=== PATIENT | male | born 1950 | race Caucasian/White ===

== ENCOUNTER 2018-12-02 10:32 | Emergency (ER) | payer BC, MEDICARE ==
[~2018-12-02 10:32] MED LIST: ATOR20TA PO; CLOP75TA35 PO; METAMUCIL425 GM PO
--- NOTE | 2018-12-02 10:47 | NUR ---
PT TELLS REGISTRATION THAT HE IS LEAVING AND GOING TO DR JACKSON'S OFFICE.
== END 2018-12-02 11:52 | disposition left against medical advice (07) ==
LOC: ER 10:32
DX: R30.0 Dysuria (principal); Z53.21 Procedure and treatment not carried out due to patient leaving prior to being seen by health care provider

== ENCOUNTER 2021-06-03 18:10 | Inpatient (IN) | payer MEDICARE, OTHER ==
[~2021-06-03] VITALS: Ht 180.3 cm; Wt 99.1 kg
[~2021-06-03 18:10] MED LIST changes: +ASPI-1265 PO; -ATOR20TA PO; -CLOP75TA35 PO; +LOP25T PO; -METAMUCIL425 GM PO; +NITR0.4T51 SL; +NORT25CA5 PO; +OMEG1CAP46 PO
[2021-06-03 18:54] LABS: EOSINOPHILS # (AUTO) 0.2 X10'3 (0-0.9); HEMATOCRIT 45.1 % (42.0-52.0); HEMOGLOBIN 15.5 g/dl (14.0-17.9); MEAN CORPUSCULAR HGB CONC 34.3 g/dL (33.0-36.5); MEAN PLATELET VOLUME 8.6 FL (7.4-10.4); MONOCYTES # (AUTO) 0.4 X10'3 (0-0.9); NEUTROPHILS # (AUTO) 2.7 X10'3 (1.8-7.7)
[2021-06-03 18:56] LABS: EOSINOPHILS % (AUTO) 3.7 % (0-6); LYMPHOCYTES # (AUTO) 1.2 X10'3 (1.1-4.8); LYMPHOCYTES % (AUTO) 25.6 % (21-51); MEAN CORPUSCULAR HEMOGLOBIN 30.6 PG (27.0-31.0); MEAN CORPUSCULAR VOLUME 89.2 FL (78-98); MONOCYTES % (AUTO) 8.5 % (2-12); NEUTROPHILS % (AUTO) 61.2 % (42-75); PLATELET COUNT 191 X10'3 (140-440); RED BLOOD COUNT 5.06 X10'6 (4.70-6.10); WHITE BLOOD COUNT 4.5 X10'3 (4.5-11.0)
[2021-06-03 19:03] LABS: ALANINE AMINOTRANSFERASE 36 U/L (12-78); ALBUMIN 3.8 G/DL (3.4-5.0); ALBUMIN/GLOBULIN RATIO 1.2 (1.1-1.5); ALKALINE PHOSPHATASE 56 IU/L (46-116); ANION GAP 7 (8-16); ASPARTATE AMINO TRANSFERASE 21 U/L (10-37); BILIRUBIN,TOTAL 0.5 MG/DL (0.1-1.0); BLOOD UREA NITROGEN 14 MG/DL (7-18); BUN/CREATININE RATIO 12.5 (5.4-32.0); CHLORIDE 105 MMOL/L (99-107); CREATININE 1.12 MG/DL (0.60-1.10); GLUCOSE 125 MG/DL (70-104); SODIUM 140 MMOL/L (135-145); TOTAL CARBON DIOXIDE 27.6 MMOL/L (24-32); eGFR 65 ML/MIN
[2021-06-03] MEDS ORDERED: AMIT10TA6 PO (20:28)
[2021-06-03] MEDS ORDERED: ATOR20TA66 PO (20:28)
[2021-06-03] MEDS ORDERED: HYDROcodone/acetaminophen 10/325mg tab PO PRN (20:30)
[2021-06-03] MEDS ORDERED: nitroGLYCERIN 0.4mg SUBLingual tab SL PRN (20:30)
[2021-06-03] MEDS ORDERED: regadenoson 0.4mg/5ml syringe IV PRN (20:30)
[2021-06-03] MEDS ORDERED: mag hydrox/Alum hydrox/simeth 30ml oral suspension PO PRN (20:30)
[2021-06-03] MEDS ORDERED: aminophylline 250mg/10ml inj. IV PRN (20:30)
[2021-06-03] MEDS ORDERED: potassium Cl 20 mEq SR tablet PO PRN ×2 (20:30)
[2021-06-03] MEDS ORDERED: metoprolol tartrate 1mg/ml inj IV PRN (20:30)
[2021-06-03] MEDS ORDERED: PERFLUTREN PROTEIN-A MICROSPHR (Optison) 0.22 MG/ML 3ML VIAL IV PRN (20:30)
[2021-06-03] MEDS ORDERED: normal saline 1000ml 1,000 ML IV SCH (20:30)
[2021-06-03] MEDS ORDERED: magnesium Cl slow-release 64mg tablet PO PRN (20:30)
[2021-06-03] MEDS ORDERED: acetaminophen 325mg tablet PO PRN ×2 (20:30)
[2021-06-03] MEDS ORDERED: ondansetron/PF 4mg/2ml inj IV PRN (20:30)
[2021-06-03] MEDS ORDERED: magnesium hydroxide 30ml (MOM) UD suspension PO PRN (20:30)
[2021-06-03] MEDS ORDERED: magnesium 4gm in 100ml NS 100 ML IV PRN (20:30)
[2021-06-03] MEDS ORDERED: magnesium 2GM in 50ml NS 50 ML IV PRN (20:30)
[2021-06-03] MEDS ORDERED: HYDROcodone/acetaminophen 5mg/325mg tablet PO PRN (20:30)
[2021-06-03] MEDS ORDERED: morphine 2 MG/ML inj. syringe IV PRN ×2 (20:30)
[2021-06-03] MEDS ORDERED: potassium CL 10mEq/100ml bag 100 ML IV PRN (20:30)
[2021-06-03 20:54] LABS: MAGNESIUM 2.3 MG/DL (1.5-2.4)
[2021-06-03] MEDS ORDERED: temazepam 15mg capsule PO PRN (21:00)
--- NOTE | 2021-06-03 22:37 | NUR ---
Patient transfer from ER into PCU room 3028M in a stable condition, vitals signs stable oriented to room no complaint of chest pain bed in lower position call light within reach will continue to monitor and report change
[2021-06-03 23:00] VITALS: BP 142/76
[2021-06-04] VITALS (9 sets, daily range): BP systolic 74–133; BP diastolic 68–82
[2021-06-04] MEDS: heparin, porcine 5000 units/ml vial SQ SCH ×2 (00:59→08:30)
--- NOTE | 2021-06-04 06:41 | NUR ---
Problems reprioritized. Patient report given, questions answered & plan of care reviewed with Kerline GODINEZ .
[2021-06-04 06:57] LABS: EOSINOPHILS # (AUTO) 0.2 X10'3 (0-0.9); HEMATOCRIT 44.7 % (42.0-52.0); HEMOGLOBIN 15.1 g/dl (14.0-17.9); LYMPHOCYTES % (AUTO) 27.7 % (21-51); MEAN CORPUSCULAR HEMOGLOBIN 30.6 PG (27.0-31.0); MEAN CORPUSCULAR HGB CONC 33.9 g/dL (33.0-36.5); MEAN CORPUSCULAR VOLUME 90.2 FL (78-98); MEAN PLATELET VOLUME 8.7 FL (7.4-10.4); MONOCYTES # (AUTO) 0.4 X10'3 (0-0.9); MONOCYTES % (AUTO) 11.7 % (2-12); NEUTROPHILS # (AUTO) 1.9 X10'3 (1.8-7.7); NEUTROPHILS % (AUTO) 53.6 % (42-75); PLATELET COUNT 165 X10'3 (140-440); RED BLOOD COUNT 4.96 X10'6 (4.70-6.10); RED CELL DISTRIBUTION WIDTH 13.2 % (11.5-14.5); WHITE BLOOD COUNT 3.6 X10'3 (4.5-11.0)
[2021-06-04] MEDS ORDERED: pantoprazole 40mg Tablet.DR PO SCH (07:30)
[2021-06-04 07:37] LABS: ALANINE AMINOTRANSFERASE 45 U/L (12-78); ALBUMIN 3.4 G/DL (3.4-5.0); ALBUMIN/GLOBULIN RATIO 1.1 (1.1-1.5); ALKALINE PHOSPHATASE 52 IU/L (46-116); ANION GAP 9 (8-16); ASPARTATE AMINO TRANSFERASE 28 U/L (10-37); BILIRUBIN,TOTAL 0.5 MG/DL (0.1-1.0); BLOOD UREA NITROGEN 16 MG/DL (7-18); CALCIUM 8.6 MG/DL (8.5-10.1); CHLORIDE 107 MMOL/L (99-107); CHOL/HDL RATIO 2.9 (0.00-4.99); CHOLESTEROL 133 MG/DL (0-200); CREATININE 0.94 MG/DL (0.60-1.10); GLUCOSE 102 MG/DL (70-104); HDL CHOLESTEROL 46 MG/DL (35-60); LDL CHOLESTEROL 67 MG/DL (50-100); POTASSIUM 4.1 MMOL/L (3.5-5.1); SODIUM 141 MMOL/L (135-145); TOTAL CARBON DIOXIDE 25.2 MMOL/L (24-32); TOTAL PROTEIN 6.4 G/DL (6.4-8.2); TRIGLYCERIDES 118 MG/DL (20-135); eGFR 79 ML/MIN
[2021-06-04] MEDS ORDERED: atorvastatin 20mg tablet PO SCH (08:00)
[2021-06-04] MEDS ORDERED: metoprolol tartrate 12.5mg (1/2 tablet) PO SCH (08:00)
[2021-06-04] MEDS ORDERED: aspirin 81mg tab.chew PO SCH (08:00)
[2021-06-04] MEDS ORDERED: K and/or MAG REPLACEMENT MC SCH (08:00)
[2021-06-04] MEDS ORDERED: amitriptyline 10mg tablet PO SCH (08:00)
[2021-06-04] MEDS ORDERED: METO-395 PO (12:00)
--- NOTE | 2021-06-04 12:35 | NUR ---
PAGER ID: [phone] MESSAGE: [phone] Tammy results are back, please advise when we can advance him from NPO. Pt has been asking. Seema ext [phone]
[2021-06-05] MEDS ORDERED: metoprolol succinate 25mg (24-HOUR) SR. Tablet PO SCH (08:00)
== END 2021-06-04 15:29 | disposition home or self-care (01) | DRG 556 ==
LOC: ER 18:12 → ED HOLD 20:31 → PCU 3S 22:25
PROVIDERS: ADMIT Internal Medicine; ATTEND Internal Medicine
PROC: 4A02XM4 Measurement of Cardiac Total Activity, External Approach (ICD-10-PCS; principal; 2021-06-04)
PROC: 3E073KZ Introduction of Other Diagnostic Substance into Coronary Artery, Percutaneous Approach (ICD-10-PCS; 2021-06-04)
DX: M79.602 Pain in left arm (principal); E78.00 Pure hypercholesterolemia, unspecified; E78.5 Hyperlipidemia, unspecified; K21.9 Gastro-esophageal reflux disease without esophagitis; R10.10 Upper abdominal pain, unspecified; N18.30 Chronic kidney disease, stage 3 unspecified; Z79.82 Long term (current) use of aspirin; Z79.899 Other long term (current) drug therapy; Z87.891 Personal history of nicotine dependence; I25.2 Old myocardial infarction; Z82.49 Family history of ischemic heart disease and other diseases of the circulatory system
CPT/HCPCS: 36415; 71045; 78452; 80053; 80061; 83735; 83880; 84484; 85025; 93005; 93017; 93306; 96360; 97116; 97161; 97530; 99285; A9500; G0378; J1644; J2785; J7030

== ENCOUNTER 2022-07-22 17:22 | Emergency (ER) | payer MEDICARE ==
[~2022-07-22] VITALS: Ht 180.3 cm; Wt 98.0 kg
[~2022-07-22 17:22] MED LIST changes: +AMIT10TA6 PO; +ATOR20TA66 PO; -LOP25T PO; +METO-395 PO; -NORT25CA5 PO
[2022-07-22 18:25] LABS: BASOPHILS % (AUTO) 0.7 % (0-1); EOSINOPHILS # (AUTO) 0.2 X10'3 (0-0.9); HEMATOCRIT 46.2 % (42.0-52.0); HEMOGLOBIN 15.4 g/dl (14.0-17.9); LYMPHOCYTES # (AUTO) 1.2 X10'3 (1.1-4.8); LYMPHOCYTES % (AUTO) 19.4 % (21-51); MEAN CORPUSCULAR HEMOGLOBIN 30.3 PG (27.0-31.0); MEAN CORPUSCULAR HGB CONC 33.4 g/dL (33.0-36.5); MEAN CORPUSCULAR VOLUME 90.9 FL (78-98); MEAN PLATELET VOLUME 8.4 FL (7.4-10.4); MONOCYTES # (AUTO) 0.5 X10'3 (0-0.9); MONOCYTES % (AUTO) 8.5 % (2-12); NEUTROPHILS # (AUTO) 4.1 X10'3 (1.8-7.7); NEUTROPHILS % (AUTO) 68.4 % (42-75); PLATELET COUNT 187 X10'3 (140-440); RED BLOOD COUNT 5.08 X10'6 (4.70-6.10); RED CELL DISTRIBUTION WIDTH 13.3 % (11.5-14.5)
[2022-07-22 18:38] LABS: ALANINE AMINOTRANSFERASE 27 U/L (12-78); ALBUMIN 4.1 G/DL (3.4-5.0); ALBUMIN/GLOBULIN RATIO 1.3 (1.1-1.5); ALKALINE PHOSPHATASE 60 IU/L (46-116); ANION GAP 8 (8-16); ASPARTATE AMINO TRANSFERASE 20 U/L (10-37); BILIRUBIN,TOTAL 0.6 MG/DL (0.1-1.0); BLOOD UREA NITROGEN 18 MG/DL (7-18); BUN/CREATININE RATIO 15.9 (5.4-32.0); CHLORIDE 104 MMOL/L (99-107); CREATININE 1.13 MG/DL (0.60-1.10); GLUCOSE 97 MG/DL (70-104); MAGNESIUM 2.2 MG/DL (1.5-2.4); POTASSIUM 3.8 MMOL/L (3.5-5.1); SODIUM 138 MMOL/L (135-145); TOTAL PROTEIN 7.2 G/DL (6.4-8.2); eGFR 64 ML/MIN
[2022-07-22] MEDS ORDERED: acetaminophen 325mg tablet PO ONE (21:45)
[2022-07-22] MEDS ORDERED: ondansetron 4mg rapidly disintigrating tab PO ONE (22:00)
[2022-07-22 22:33] VITALS: BP 148/84
== END 2022-07-22 22:34 | disposition home or self-care (01) ==
LOC: ER 17:22
DX: R07.89 Other chest pain (principal); R51.9 Headache, unspecified; R06.02 Shortness of breath; E78.00 Pure hypercholesterolemia, unspecified; I25.2 Old myocardial infarction; K21.9 Gastro-esophageal reflux disease without esophagitis; I25.10 Atherosclerotic heart disease of native coronary artery without angina pectoris; Z98.890 Other specified postprocedural states; Z72.89 Other problems related to lifestyle; Z79.899 Other long term (current) drug therapy; Z79.82 Long term (current) use of aspirin
CPT/HCPCS: 36415; 70450; 71045; 80053; 83735; 83880; 84484; 85025; 93005; 99285

== ENCOUNTER 2022-09-25 18:29 | Emergency (ER) | payer MEDICARE ==
[~2022-09-25] VITALS: Ht 180.3 cm; Wt 105.4 kg
[2022-09-25 19:43] LABS: CLARITY,URINE SLIGHTLY CLOUDY (Clear); COLOR,URINE YELLOW (Yellow); GLUCOSE, URINE NEGATIVE (Neg); KETONES,URINE NEGATIVE (Neg); LEUKOCYTE ESTERASE ,URINE NEGATIVE (Neg); NITRITES, URINE NEGATIVE (Neg); OCCULT BLOOD,URINE LARGE (Neg); PH,URINE 7.5 (4.8-8.0); PROTEIN,URINE NEGATIVE (Neg); UROBILINOGEN,URINE 0.2 E.U/dL (0.2-1.0)
[2022-09-25 19:50] LABS: UA COLLECTION TYPE CLN CATCH MIDSTREAM
[2022-09-25 20:04] LABS: RBC,URINE TNTC /HPF (0-2); SQUAMOUS EPITHELIAL CELL,UR FEW /LPF (FEW)
[2022-09-25 20:05] LABS: BACTERIA,URINE FEW /HPF (Neg); WBC,URINE 0-4 /HPF (0-4)
[2022-09-25 21:26] LABS: BASOPHILS % (AUTO) 0.9 % (0-1); EOSINOPHILS # (AUTO) 0.1 X10'3 (0-0.9); EOSINOPHILS % (AUTO) 1.7 % (0-6); HEMOGLOBIN 15.5 g/dl (14.0-17.9); LYMPHOCYTES # (AUTO) 1.2 X10'3 (1.1-4.8); LYMPHOCYTES % (AUTO) 24.1 % (21-51); MEAN CORPUSCULAR HGB CONC 33.7 g/dL (33.0-36.5); MEAN PLATELET VOLUME 8.5 FL (7.4-10.4); MONOCYTES # (AUTO) 0.6 X10'3 (0-0.9); MONOCYTES % (AUTO) 11.1 % (2-12); NEUTROPHILS # (AUTO) 3.1 X10'3 (1.8-7.7); NEUTROPHILS % (AUTO) 62.2 % (42-75); PLATELET COUNT 196 X10'3 (140-440); RED CELL DISTRIBUTION WIDTH 13.5 % (11.5-14.5)
[2022-09-25 21:33] LABS: ANION GAP 10 (8-16); BLOOD UREA NITROGEN 17 MG/DL (7-18); BUN/CREATININE RATIO 13.5 (10.0-20.0); CALCIUM 9.4 MG/DL (8.5-10.1); CHLORIDE 106 MMOL/L (99-107); CREATININE 1.26 MG/DL (0.60-1.10); GLUCOSE 98 MG/DL (70-104); SODIUM 142 MMOL/L (135-145); TOTAL CARBON DIOXIDE 26.2 MMOL/L (24-32); eGFR 56 ML/MIN
[2022-09-26] MEDS ORDERED: LidoCAINE 2% Topical Jelly 11mL syringe TOP ONE (01:15)
[2022-09-26 02:33] VITALS: BP 143/84
== END 2022-09-26 02:43 | disposition home or self-care (01) ==
LOC: ER 18:29
DX: R31.9 Hematuria, unspecified (principal); R33.9 Retention of urine, unspecified; E78.00 Pure hypercholesterolemia, unspecified; K21.9 Gastro-esophageal reflux disease without esophagitis
CPT/HCPCS: 36415; 51702; 80048; 81001; 85025; 99284; A5200

== ENCOUNTER 2022-10-06 19:30 | Emergency (ER) | payer MEDICARE ==
[~2022-10-06] VITALS: Ht 180.3 cm; Wt 99.6 kg
[2022-10-06 19:41] VITALS: BP 116/74
--- NOTE | 2022-10-06 20:01 | NUR ---
Pt in FT3 Pt c/o low urine output. Pt had a FC placed 2 weeks prior due to difficulty w/ uriation. Pt last emptied his FC around 17:30. At that time he emptied about 400ML of urine. Pt c/o urgency. Urine is blood tinged. Pt has a PMHX of prostate cancer, and prostate was removed 2011. Pt educated to POC. Pt in agreement. Pending MD orders, eval and treatment.
== END 2022-10-06 21:38 | disposition home or self-care (01) ==
LOC: ER 19:31
DX: T83.098A Other mechanical complication of other urinary catheter, initial encounter (principal); E78.00 Pure hypercholesterolemia, unspecified; K21.9 Gastro-esophageal reflux disease without esophagitis; Z87.891 Personal history of nicotine dependence
CPT/HCPCS: 99284

== ENCOUNTER 2023-01-02 15:46 | Emergency (ER) | payer MEDICARE ==
[~2023-01-02] VITALS: Ht 180.3 cm; Wt 112.0 kg
[2023-01-02 16:05] LABS: BASOPHILS % (AUTO) 0.8 % (0-1); EOSINOPHILS # (AUTO) 0.1 X10'3 (0-0.9); EOSINOPHILS % (AUTO) 1.4 % (0-6); HEMATOCRIT 45.2 % (42.0-52.0); LYMPHOCYTES # (AUTO) 1.2 X10'3 (1.1-4.8); LYMPHOCYTES % (AUTO) 23.7 % (21-51); MEAN CORPUSCULAR HEMOGLOBIN 30.1 PG (27.0-31.0); MEAN CORPUSCULAR HGB CONC 33.2 g/dL (33.0-36.5); MEAN CORPUSCULAR VOLUME 90.6 FL (78-98); MEAN PLATELET VOLUME 8.4 FL (7.4-10.4); MONOCYTES # (AUTO) 0.4 X10'3 (0-0.9); MONOCYTES % (AUTO) 8.2 % (2-12); NEUTROPHILS # (AUTO) 3.2 X10'3 (1.8-7.7); NEUTROPHILS % (AUTO) 65.9 % (42-75); PLATELET COUNT 192 X10'3 (140-440); RED BLOOD COUNT 4.99 X10'6 (4.70-6.10); RED CELL DISTRIBUTION WIDTH 13.2 % (11.5-14.5); WHITE BLOOD COUNT 4.9 X10'3 (4.5-11.0)
[2023-01-02 16:09] VITALS: BP 114/75
[2023-01-02 16:35] LABS: ALANINE AMINOTRANSFERASE 32 U/L (12-78); ALBUMIN/GLOBULIN RATIO 1.4 (1.1-1.5); ALKALINE PHOSPHATASE 55 IU/L (46-116); ANION GAP 7 (8-16); ASPARTATE AMINO TRANSFERASE 22 U/L (10-37); BILIRUBIN,TOTAL 0.8 MG/DL (0.1-1.0); BLOOD UREA NITROGEN 14 MG/DL (7-18); CALCIUM 9.3 MG/DL (8.5-10.1); CHLORIDE 105 MMOL/L (99-107); CREATININE 1.08 MG/DL (0.60-1.10); GLUCOSE 114 MG/DL (70-104); POTASSIUM 3.7 MMOL/L (3.5-5.1); SODIUM 137 MMOL/L (135-145); TOTAL CARBON DIOXIDE 24.6 MMOL/L (24-32); TOTAL PROTEIN 6.8 G/DL (6.4-8.2); eGFR 67 ML/MIN
== END 2023-01-03 00:53 | disposition left against medical advice (07) ==
LOC: ER 21:03
DX: R07.9 Chest pain, unspecified (principal); Z53.21 Procedure and treatment not carried out due to patient leaving prior to being seen by health care provider
CPT/HCPCS: 36415; 80053; 83880; 84484; 85025; 93005; 99281

== ENCOUNTER 2023-01-05 09:00 | Emergency (ER) | payer MEDICARE ==
[~2023-01-05] VITALS: Ht 180.3 cm; Wt 94.0 kg
[2023-01-05 09:53] LABS: EOSINOPHILS # (AUTO) 0.1 X10'3 (0-0.9); EOSINOPHILS % (AUTO) 3.7 % (0-6); HEMATOCRIT 44.5 % (42.0-52.0); HEMOGLOBIN 14.9 g/dl (14.0-17.9); LYMPHOCYTES # (AUTO) 1.1 X10'3 (1.1-4.8); MEAN CORPUSCULAR HEMOGLOBIN 30.3 PG (27.0-31.0); MEAN CORPUSCULAR HGB CONC 33.4 g/dL (33.0-36.5); MEAN CORPUSCULAR VOLUME 90.7 FL (78-98); MEAN PLATELET VOLUME 8.6 FL (7.4-10.4); MONOCYTES # (AUTO) 0.4 X10'3 (0-0.9); MONOCYTES % (AUTO) 10.7 % (2-12); NEUTROPHILS # (AUTO) 2.2 X10'3 (1.8-7.7); NEUTROPHILS % (AUTO) 56.6 % (42-75); PLATELET COUNT 186 X10'3 (140-440); RED BLOOD COUNT 4.91 X10'6 (4.70-6.10); RED CELL DISTRIBUTION WIDTH 12.8 % (11.5-14.5); WHITE BLOOD COUNT 3.8 X10'3 (4.5-11.0)
[2023-01-05 10:10] LABS: ALANINE AMINOTRANSFERASE 39 U/L (12-78); ALBUMIN/GLOBULIN RATIO 1.4 (1.1-1.5); ALKALINE PHOSPHATASE 55 IU/L (46-116); ANION GAP 11 (8-16); ASPARTATE AMINO TRANSFERASE 27 U/L (10-37); BILIRUBIN,TOTAL 0.5 MG/DL (0.1-1.0); BLOOD UREA NITROGEN 15 MG/DL (7-18); BUN/CREATININE RATIO 13.2 (10.0-20.0); CALCIUM 9.1 MG/DL (8.5-10.1); CHLORIDE 106 MMOL/L (99-107); CREATININE 1.14 MG/DL (0.60-1.10); GLUCOSE 114 MG/DL (70-104); LIPASE 73 U/L (73-393); POTASSIUM 4.5 MMOL/L (3.5-5.1); SODIUM 143 MMOL/L (135-145); TOTAL CARBON DIOXIDE 26.2 MMOL/L (24-32); TOTAL PROTEIN 6.8 G/DL (6.4-8.2); eGFR 63 ML/MIN
[2023-01-05 11:25] VITALS: BP 119/74
[2023-01-05 11:49] LABS: CLARITY,URINE CLEAR (Clear); COLOR,URINE YELLOW (Yellow); GLUCOSE, URINE NEGATIVE (Neg); KETONES,URINE NEGATIVE (Neg); LEUKOCYTE ESTERASE ,URINE NEGATIVE (Neg); NITRITES, URINE NEGATIVE (Neg); OCCULT BLOOD,URINE NEGATIVE (Neg); PROTEIN,URINE NEGATIVE (Neg); UROBILINOGEN,URINE 0.2 E.U/dL (0.2-1.0)
[2023-01-05 11:50] LABS: UA COLLECTION TYPE CLN CATCH MIDSTREAM
[2023-01-05 13:20] LABS: OCCULT BLOOD STOOL POSITIVE (Neg)
== END 2023-01-05 12:09 | disposition home or self-care (01) ==
LOC: ER 09:01
DX: K92.1 Melena (principal); K64.9 Unspecified hemorrhoids; E78.00 Pure hypercholesterolemia, unspecified; K21.9 Gastro-esophageal reflux disease without esophagitis
CPT/HCPCS: 36415; 80053; 81003; 82272; 83690; 85025; 99283

== ENCOUNTER 2023-03-21 12:21 | Emergency (ER) | payer MEDICARE ==
[~2023-03-21] VITALS: Ht 180.3 cm; Wt 99.1 kg
[2023-03-21 13:32] VITALS: TEMP 97
[2023-03-21 14:15] VITALS: BP 122/101; PULSE 64; O2SAT 97
[2023-03-21 14:19] VITALS: RESP 16
[2023-03-22] MEDS ORDERED: TOPI25TA15 PO (09:33)
== END 2023-03-21 19:05 | disposition left against medical advice (07) ==
LOC: ER 12:21
DX: R51.9 Headache, unspecified (principal); Z53.21 Procedure and treatment not carried out due to patient leaving prior to being seen by health care provider
CPT/HCPCS: 99281

== ENCOUNTER 2023-03-22 07:39 | Emergency (ER) | payer MEDICARE ==
[~2023-03-22] VITALS: Ht 180.3 cm; Wt 110.0 kg
[2023-03-22 07:45] VITALS: TEMP 97.8
[2023-03-22 09:22] VITALS: BP 136/88; PULSE 55; RESP 18; O2SAT 98
[2023-03-22] MEDS ORDERED: TOPI25TA15 PO (09:33)
== END 2023-03-22 10:33 | disposition home or self-care (01) ==
LOC: ER 07:40
DX: R51.9 Headache, unspecified (principal); E78.00 Pure hypercholesterolemia, unspecified; K21.9 Gastro-esophageal reflux disease without esophagitis; Z79.899 Other long term (current) drug therapy; Z79.82 Long term (current) use of aspirin
CPT/HCPCS: 70450; 99284

== ENCOUNTER 2024-12-17 10:51 | Emergency (ER) | payer MEDICARE ==
[~2024-12-17] VITALS: Ht 180.3 cm; Wt 97.7 kg
[~2024-12-17 10:51] MED LIST changes: +TOPI25TA15 PO
[2024-12-17 10:57] VITALS: TEMP 97.5
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
--- NOTE | 2024-12-17 12:21 | RADIOLOGY REPORT ---
EXAM: CT CT HEAD HISTORY: headache ICH COMPARISON: CT CT HEAD on DOS: 03/22/23, CT HEAD on DOS: 07/22/22 TECHNIQUE: Noncontrast axial CT images of the head were performed. Sagittal and coronal reformatted i mages were obtained. This CT exam was performed using 1 or more of the following dose reduction techn iques: Automated exposure control, adjustment of the mA and/or kv according to patient size, or the u se of iterative reconstruction techniques. Radiation Dose: CTDI volume is 60.63 mGy. Dose-length product is 1140.37 mGy*cm FINDINGS: No intracranial hemorrhage, mass, midline shift, hydrocephalus, or evidence of acute large vessel inf arct. There are Postoperative changes of Bilateral cataract extraction surgery. There are postoperati ve changes of bilateral maxillary antral windows and partial bilateral ethmoidectomies. There is a mu cous retention cyst in the right sphenoid sinus. Probable old bilateral nasal bone fractures. The kurt ateral mastoid air cells and middle ear spaces are clear. No cranial fracture or scalp edema. IMPRESSION: 1. No acute intracranial process. 2. Postoperative changes of the nasal cavity and mild right sphenoid sinus disease.
[2024-12-17] MEDS ORDERED: AMOX-580 PO (12:59)
[2024-12-17 13:14] VITALS: BP 134/80; PULSE 55; RESP 16; O2SAT 96
== END 2024-12-17 13:15 | disposition home or self-care (01) ==
LOC: ER 10:52
DX: J32.9 Chronic sinusitis, unspecified (principal); E78.00 Pure hypercholesterolemia, unspecified; I25.10 Atherosclerotic heart disease of native coronary artery without angina pectoris; K21.9 Gastro-esophageal reflux disease without esophagitis; I25.2 Old myocardial infarction; Z98.890 Other specified postprocedural states
CPT/HCPCS: 70450; 99284

== ENCOUNTER 2025-02-23 05:26 | Day surgery (SDC) | payer MEDICARE, OTHER ==
[2025-02-17 11:34] LABS: MEAN PLATELET VOLUME 8.3 FL (7.4-10.4); PRE OP HEMATOCRIT 44.9 % (42.0-52.0); PRE OP HEMOGLOBIN 15.2 g/dL (14.0-17.9); PRE OP PLATELET COUNT 185 X10'3 (140-440); PRE OP WHITE BLOOD COUNT 6.7 10'3 (4.8-10.8); RED CELL DISTRIBUTION WIDTH 13.4 % (11.5-14.5)
[2025-02-17 12:12] LABS: CREATININE 0.93 MG/DL (0.60-1.10); PRE OP ALT 23 U/L (30-65); PRE OP ANION GAP 9 (8-16); PRE OP AST 28 U/L (10-37); PRE OP BILIRUB, TOTAL 0.6 MG/DL (0.0-1.0); PRE OP GLUCOSE 96 MG/DL (70-104); PRE OP POTASSIUM 4.2 MMOL/L (3.4-5.1); PRE OP SODIUM 144 MMOL/L (135-145); TOTAL CARBON DIOXIDE 29.3 MMOL/L (24-32); eGFR 79 ML/MIN
[~2025-02-23] VITALS: Ht 180.3 cm; Wt 93.0 kg
[2025-02-23] VITALS (10 sets, daily range): BP systolic 122–162; BP diastolic 65–80; PULSE 56–89; RESP 12–16; TEMP 98; O2SAT 94–99
[~2025-02-23 05:26] MED LIST changes: -AMIT10TA6 PO; -ASPI-1265 PO; +CHOL50CA2 PO; +GLUC1CAP8 PO; +LAMO-24 PO; -METO-395 PO; -NITR0.4T51 SL; +OMEG-166 PO; -OMEG1CAP46 PO; -TOPI25TA15 PO
[2025-02-23] MEDS: ringers solution, lacted 1,000 ML IV SCH (05:30)
[2025-02-23] MEDS: ceFAZolin 2gm/dext,iso 50mL 50 ML IV ONE (06:03)
[2025-02-23] MEDS ORDERED: LIDOcaine 1% (10mg/ml)w/preservative inj. 20ml MDV ONE (06:38)
[2025-02-23] MEDS ORDERED: BUPIVAcaine/PF 2.5mg/ml (0.25%) 10ml vial ONE (06:39)
[2025-02-23] MEDS ORDERED: fentaNYL/PF 50MCG/1 ML 2ML syringe ONE (07:18)
[2025-02-23] MEDS ORDERED: midazolam 1 mg/ML 2ml injection ONE (07:19)
[2025-02-23] MEDS ORDERED: LIDOcaine 1%/PF 5ML 10 MG/ML VIAL ONE (07:21)
[2025-02-23] MEDS ORDERED: propofol inj 20 ML IV ONE (07:21)
[2025-02-23] MEDS ORDERED: rocuronium 10mg/ml inj IV ONE (07:21)
[2025-02-23] MEDS ORDERED: acetaminophen 1,000mg/100ml IV 100 ML IV ONE (07:21)
[2025-02-23] MEDS ORDERED: dexamethasone sod phosphate 4mg/ml inj. ONE (07:21)
[2025-02-23] MEDS ORDERED: ondansetron/PF 4mg/2ml inj ONE (07:21)
[2025-02-23] MEDS ORDERED: glycopyrrolate 0.2mg/ml inj ONE (07:57)
--- NOTE | 2025-02-23 07:58 | HISTORY AND PHYSICAL ---
History & Physical Providers to CC CC: SHASHA WEST MD ~ History of Present Illness Reason for Admit\Complaint: Left inguinal hernia History of Present Illness Jaziel is here today for elective repair of a left inguinal hernia Patient was seen in the office greater than 30 days ago and confirmed to have a left inguinal hernia I met the patient 10 years ago. At that time he had an umbilical and right inguinal hernia repair. Since then he has had an open prostatectomy He is here today for elective robotic assisted, laparoscopic left inguinal hernia repair with mesh. Anticipate this case may take a little bit longer than usual given the past jessee gical history He denies any change in his past medical history since he was seen in the office last month (please see previous history and physical exam for all pertinent details) Allergies: Coded Allergies: No Known Allergies (Unverified , 03/22/23) Home Medications Home Medications Active Reported Glucosamine Complex-Msm Cap (Gluc Rivera/Msm/Magnesium/Vit C) 1 Each Capsule 1 Each PO BID Vitamin D3 (Cholecalciferol (Vitamin D3)) 50 Mcg (2000 Unit) Capsule 1 Cap PO DAILY 30 Days Fish Oil 1,000 Mg Ec Softgel ([place]-3/Dha/Epa/Fish Oil) 300 Mg-1,000 Mg Cap [email or web address].dr 1 Cap PO DAILY Lamotrigine 25 Mg Tablet 3 Tab PO BID Atorvastatin Calcium 20 Mg Tablet 1 Tab PO DAILY Family History Family History: Drug addiction CHILD, Name: Stef Cade , Age: 25, Not a twin ROS ROS Reviewed and negative Exam Vitals: Vital Signs Date Time Temp Pulse Resp B/P (MAP) Pulse Ox O2 Delivery O2 Flow Rate FiO2 02/23/25 06:00 15 98 Room Air 02/23/25 06:00 56 General: 74-year-old gentleman well-developed well-nourished in no acute distress Chest: Lungs clear to auscultation bilaterally Cardiovascular: Regular rate and rhythm without murmurs Abdomen: Soft and nondistended Left side marked as the surgical site Problems: (1) Left inguinal hernia Assessment & Plan: The risks, benefits, and alternatives to a robotic assisted, laparoscopic left, possible recurrent right inguinal hernia repair with mesh were discussed with the patient. Risks include, but are not limited to, bleeding, infection, injury to intra-abdominal structures, hernia recurrence and chronic postoperative pain. Patient verbalized understanding and wishes to proceed with surgery. We will do so today as scheduled SHASHA WEST MD Feb 23, 2025 07:58
[2025-02-23] MEDS ORDERED: morphine 4 MG/ML inj SYRINge IV PRN (08:20)
[2025-02-23] MEDS ORDERED: fentaNYL/PF 50MCG/1 ML 2ML syringe IV PRN ×2 (08:20)
[2025-02-23] MEDS ORDERED: hydrALAZINE 20mg/ml inj. IV PRN (08:20)
[2025-02-23] MEDS ORDERED: ondansetron/PF 4mg/2ml inj IV PRN (08:20)
[2025-02-23] MEDS ORDERED: ringers solution, lacted 1,000 ML IV SCH (08:20)
[2025-02-23] MEDS ORDERED: labetalol 20mg/4ml (5mg/ml) syringe IV PRN (08:20)
[2025-02-23] MEDS: BUPIVAcaine/PF 2.5mg/ml (0.25%) 10ml vial IJ ONE (08:29)
[2025-02-23] MEDS ORDERED: oxyCODONE/APAP 5-325mg tablet PO PRN (09:35)
--- NOTE | 2025-02-23 09:35 | OPERATIVE REPORT ---
Operative Report Providers to CC: ANTONY WEST MD ~ Date of Procedure: Feb 23, 2025 Pre-Operative Diagnosis: Left inguinal hernia Post-Operative Diagnosis SAME as PRE-Op Procedure Performed Robotic assisted, laparoscopic left inguinal hernia repair with mesh Surgeon: Antony West MD FACS Cardiovascular Surgical Tech None Anesthesiologist: Ender Jc Type of Anesthesia: General Findings: Large indirect left inguinal hernia Wound class I Complications None Prosthetics\Implants used: Extra-large left Dextile mesh Estimated Blood Loss: Minimal Specimen Removed: None Description of Procedure: Patient was brought to the operating room and identified by the nursing staff and the attending physician. Patient was placed supine and general anesthesia was induced. Patient's abdomen was prepped and draped in standard sterile fashion. Preoperative antibiotics were given. Veress needle technique was used at zelaya's point in the abdomen was insufflated without incident. Optical 12 mm port was used to gain access to the abdomen through the left mid abdomen. Laparoscope was inserted in the abdomen surveyed. There were some adhesions to the posterior aspect of the umbilicus, however, adequate space for additional 8.5 mm robotic port placement. These were placed in the left per iumbilical and right mid abdomen under laparoscopic visualization. The da Uday robotic arm was docked to the patient and instruments placed intra-abdominally under laparoscopic visualization. The right hemipelvis was examined and showed no evidence of right inguinal hernia. An indirect inguinal hernia was identified on the left side. Hernia sac was moderate in size. A rent was created in the peritoneum from the median umbilical fold and carried out laterally towards the anterior superior iliac spine. Preperitoneal flap was created and carried down to the symphysis pubis. This was somewhat difficult given previous open prostatectomy, however, I was able to create adequate space between the tissue layers. The retropubic space of [place] was developed and the bladder swept medially. Dissection was carried out laterally until an indirect hernia sac was identified. This was fairly large in size. Hernia sac was completely dissected away from the cord structures and reduced. The critical view of the myopectineal orifice was achieved. Dissection was carried out laterally to allow space for mesh deployment. An extra-large mesh and suture was passed intra-abdominally. Mesh was laid in the preperitoneal space covering both indirect, direct, and potential femoral and obturator hernias. Mesh laid without wrinkles or folds. 3 tacking sutures using 0 Ethibond were used to fix the mesh at the symphysis pubis, rectus abdominis, and just anterior to the anterior superior iliac spine. The peritoneal rent was then closed with running, 2/0, absorbable locking suture. [place] were retrieved. The 12 mm port site fascia was closed percutaneously with 0 Vicryl suture under laparoscopic visualization. Remaining ports were removed after the abdomen was allowed to deflate. Skin incisions were closed with 4-0 Monocryl sutures in a subcuticular fashion. Sterile dressings were applied. Patient was awakened and taken to the postanesthesia care unit in stable condition. Counts repoted as correct: Yes ANTONY WEST MD Feb 23, 2025 09:35
== END 2025-02-23 10:36 | disposition home or self-care (01) ==
LOC: PAS 05:26
PROVIDERS: ATTEND Surgery
DX: K40.90 Unilateral inguinal hernia, without obstruction or gangrene, not specified as recurrent (principal); I10 Essential (primary) hypertension; I25.10 Atherosclerotic heart disease of native coronary artery without angina pectoris; E78.5 Hyperlipidemia, unspecified; G47.33 Obstructive sleep apnea (adult) (pediatric); Z79.899 Other long term (current) drug therapy; Z98.890 Other specified postprocedural states
CPT/HCPCS: 36415; 49650; 80053; 82948; 85025; J0131; J1100; J2250; J2405; J2704; J2710; J3010; J3490; J7120; Z7512; Z7610; A4215; A4618; C1781

== ENCOUNTER 2025-03-26 08:30 | Emergency (ER) | payer MEDICARE, OTHER ==
[~2025-03-26] VITALS: Ht 180.3 cm; Wt 95.7 kg
[2025-03-26 09:48] LABS: MEAN PLATELET VOLUME 9.0 FL (7.4-10.4); RED CELL DISTRIBUTION WIDTH 13.3 % (11.5-14.5)
[2025-03-26 10:03] LABS: CREATININE 0.78 MG/DL (0.60-1.10); TOTAL CARBON DIOXIDE 30.4 MMOL/L (24-32); eCRCL 88 ML/MIN; eGFR > 90 ML/MIN
--- NOTE | 2025-03-26 10:12 | Physician Documentation ---
History of Present Illness General Chief Complaint: Abdominal Pain Stated Complaint: ABD PAIN Time Seen by MD: 09:55 Primary Medical Doctor: Dr. Paulson Mode of Arrival: POV History of Present Illness Initial Comments The patient is a 74-year-old male with a history of diverticulitis and recent left-sided inguinal hernia repair about a month ago who has had a five day history of left-sided abdominal pain, no nausea or vomiting and no diarrhea. Medication Reconciliation Allergies: Coded Allergies: No Known Allergies (Unverified , 03/22/23) Scheduled Atorvastatin Calcium (Atorvastatin Calcium), 1 TAB PO DAILY, (Reported) Cholecalciferol (Vitamin D3) (Vitamin D3), 1 CAP PO DAILY, (Reported) Gluc [place]/Msm/Magnesium/Vit C (Glucosamine Complex-Msm Cap), 1 EACH PO BID, (Reported) Lamotrigine (Lamotrigine), 3 TAB PO BID, (Reported) [place]-3/Dha/Epa/Fish Oil (Fish Oil 1,000 Mg Ec Softgel), 1 CAP PO DAILY, (Reported) Past Medical History Past Medical History: Coronary Artery Disease, High Cholesterol, Myocardial Infarction, GERD, Hernia, *CANCER* Past Surgical History: abdominal surgery, other Other Past Surgical History: hernia repair x2 Smoking: Quit greater than 1 year Alcohol Use: Occasionally Drug Use: none Lives with: Spouse Lives In: Home Physical Exam Physical Exam Vital Signs: Temperature: 97.1, Source: Temporal, Heart Rate: 64, Respiratory Rate: 15, BP: 121/70, Pulse Oximetry: 97, Weight: 95.700 Progress Results/Orders Results/Orders Orders - LESA MUNOZ MD Ct Abdomen Pelvis (03/26/25 10:51) Completed Orders - LESA MUNOZ MD Urinalysis, Cult If Indicated (03/26/25 08:47) Cbc/Diff (03/26/25 08:47) Lipase (03/26/25 08:47) CMP (03/26/25 08:47) Ct Abdomen Pelvis (03/26/25 10:51) Iohexol 300mg/Ml 100ml Inj. (Omnipaque-3 (03/26/25 10:34) Vital Signs 03/26/25 03/26/25 03/26/25 03/26/25 08:40 09:25 10:00 12:26 Temp 97.1 Pulse 64 63 59 Resp 15 16 18 B/P (MAP) 121/70 125/73 (90) 113/77 (89) Pulse Ox 97 96 96 O2 Flow Rate 0 0 Laboratory Tests Test 03/26/25 09:21 03/26/25 09:48 White Blood Count 5.8 Red Blood Count 4.61 L Hemoglobin 14.1 Hematocrit 42.1 Mean Corpuscular Volume 91.3 Mean Corpuscular Hemoglobin 30.5 Mean Corpuscular Hemoglobin Concent 33.4 Red Cell Distribution Width 13.3 Platelet Count 171 Mean Platelet Volume 9.0 Neutrophils (%) (Auto) 75.6 H Lymphocytes (%) (Auto) 12.1 L Monocytes (%) (Auto) 10.3 Eosinophils (%) (Auto) 1.5 Basophils (%) (Auto) 0.5 Neutrophils # (Auto) 4.4 Lymphocytes # (Auto) 0.7 L Monocytes # (Auto) 0.6 Eosinophils # (Auto) 0.1 Basophils # (Auto) 0.0 CBC Comment Sodium Level 141 Potassium Level 4.1 Chloride Level 106 Carbon Dioxide Level 30.4 Anion Gap 5 L Blood Urea Nitrogen 12 Creatinine 0.78 Estimated GFR/1.73 m2 > 90 BUN/Creatinine Ratio 15.4 Glucose Level 108 H Calcium Level 9.2 Total Bilirubin 0.6 Aspartate Amino Transf (AST/SGOT) 15 Alanine Aminotransferase (ALT/SGPT) 20 Alkaline Phosphatase 63 Total Protein 6.5 Albumin 3.3 L Globulin 3.2 Albumin/Globulin Ratio 1.0 L Lipase 24 Chemistry Comments Urine Specimen Description Cln catch midstream Urine Color Straw Urine Clarity Clear Urine pH 7.0 Urine Specific [place] <=1.005 Urine Protein Negative Urine Glucose (UA) Negative Urine Ketones Negative Urine Occult Blood Negative Urine Nitrite Negative Urine Bilirubin Negative Urine Urobilinogen 0.2 Urine Leukocyte Esterase Negative Urine Culture Indicated Not ind Volume Urine Centrifuged 10 ml Urine Comment Medical Decision Making Findings This 74-year-old man presents with left-sided abdominal pain in the history of diverticulitis. CT scan today shows diverticulitis. Has no leukocytosis, fever, constitutional symptoms and he does not appear to be toxic or septic. He prefers not to get any opioids as they gave him constipation. I am going to prescribe ibuprofen and antibiotics (which he may or may not take over the next few days, depending upon his symptoms). He will follow up with his PCP. Departure Disposition: 01 HOME / SELF CARE / HOMELESS Impression: Primary Impression: Diverticulitis Additional Instructions: You have been evaluated for abdominal pain today. It appears that you do have diverticulitis. I have sent prescriptions to your pharmacy for pain medication and antibiotics, as we discussed. Please follow-up with your PCP in a few days. In the meantime, do not hesitate to return here for worsening symptoms or new/unusual symptoms. Referrals: NO PRIMARY CARE PROVIDER (PCP) Prescriptions Metronidazole* (Flagyl*) 500 Mg Tablet 1 TAB PO Q12H for 7 Days, #14 TAB Prov: LESA MUNOZ MD 03/26/25 Ciprofloxacin HCl (Ciprofloxacin HCl) 500 Mg Tab 1 TAB PO BID, #14 TAB Prov: LESA MUNOZ MD 03/26/25 Ibuprofen (Ibuprofen) 600 Mg Tablet 1 TAB PO Q6H PRN for pain, #30 TABLET Prov: LESA MUNOZ MD 03/26/25 Signature Scribe Signature: . Attestation: . LESA MUNOZ MD Mar 26, 2025 10:12
[2025-03-26 10:24] LABS: LEUKOCYTE ESTERASE ,URINE NEGATIVE (Neg); NITRITES, URINE NEGATIVE (Neg); OCCULT BLOOD,URINE NEGATIVE (Neg)
[2025-03-26 10:29] LABS: UA COLLECTION TYPE CLN CATCH MIDSTREAM
[2025-03-26] MEDS ORDERED: iohexol 300mg/ml 100ml inj. ONE (10:34)
--- NOTE | 2025-03-26 11:49 | RADIOLOGY REPORT ---
Indication: Left-sided abdominal pain Technique: CT axial images of the abdomen and pelvis are obtained with intravenous contrast. Coronal and sagittal reformats were obtained. Radiation Dose Information: CTDI volume is 31 mGy. Dose-length product is 1531 mGy*cm Comparison: None FINDINGS: Lung bases demonstrate atelectasis Adrenal glands, spleen, pancreas unremarkable. 5 mm left hepatic lobe cysts. No CT evidence for cholelithiasis. Subcentimeter hepatic hypodensities, too small to characterize, statistically likely represent cysts. No hydronephrosis . There is a nonobstructing right renal calculus measuring 2 mm. Nonobstructing left renal calculi up to 2 mm. Stomach is partially distended. Small bowel loops are normal in caliber. Colonic diverticular disease. Bowel wall thickening with surrounding stranding involving the proximal sigmoid colon. Moderate volume stool throughout the colon. Normal appendix. Abdominal aortic atherosclerotic disease. Bladder partially distended. Small fluid collection proximal to the right inguinal canal measuring 2.1 cm. Prostatectomy. No inguinal lymphadenopathy. Moderate bilateral sacroiliac degenerative joint disease. Moderate to advanced thoracolumbar degenerative disc disease. IMPRESSION: Diverticulitis of the proximal sigmoid colon. Recommend colonoscopy once acute symptoms resolve to exclude underlying colonic lesion. Prostatectomy. Nonobstructing bilateral renal calculi. Small fluid collection proximal to the right inguinal canal measuring 2.1 cm, indeterminate. Other findings as described.
[2025-03-26] MEDS ORDERED: CIPR-458 PO (13:40)
[2025-03-26] MEDS ORDERED: METR-159 PO (13:40)
[2025-03-26] MEDS ORDERED: IBUP600T52 PO (13:40)
[2025-03-26 13:51] VITALS: BP 126/76; PULSE 64; RESP 16; TEMP 98.4; O2SAT 97
== END 2025-03-26 13:52 | disposition home or self-care (01) ==
LOC: ER 08:30
DX: K57.32 Diverticulitis of large intestine without perforation or abscess without bleeding (principal); E78.00 Pure hypercholesterolemia, unspecified; K21.9 Gastro-esophageal reflux disease without esophagitis; I25.10 Atherosclerotic heart disease of native coronary artery without angina pectoris; I25.2 Old myocardial infarction; Z98.890 Other specified postprocedural states
CPT/HCPCS: 36415; 74177; 80053; 81003; 83690; 85025; 99285; Q9967

== ENCOUNTER 2025-05-20 14:24 | Emergency (ER) | payer MEDICARE, OTHER ==
[~2025-05-20] VITALS: Ht 180.3 cm; Wt 97.1 kg
[~2025-05-20 14:24] MED LIST changes: +IBUP600T52 PO
--- NOTE | 2025-05-20 14:41 | Physician Documentation ---
History of Present Illness Chief Complaint: Abdominal Pain Stated Complaint: ABDOMINAL PAIN Time Seen by MD: 14:31 Primary Medical Doctor: Dr. Paulson HPI 74-year-old male presents to the ED with a complaint of a 5-6 days of abdominal pain with the excessive bloating gas and belching. States the pain is sharp in nature. Denies any alleviating or exacerbating factors., states he feels fine otherwise. Denies any increased shortness of breath nausea vomiting. Says his bowel movements have been normal. States that he does have a history of constipation he has had diarrhea in the last two days Day of Onset: May 20, 2025 Medication Reconciliation Allergies: Coded Allergies: No Known Allergies (Unverified , 05/22/25) Scheduled Atorvastatin Calcium (Atorvastatin Calcium), 1 TAB PO DAILY, (Reported) Cholecalciferol (Vitamin D3) (Vitamin D3), 1 CAP PO DAILY, (Reported) Gluc [place]/Msm/Magnesium/Vit C (Glucosamine Complex-Msm Cap), 1 EACH PO BID, (Reported) Lamotrigine (Lamotrigine), 3 TAB PO BID, (Reported) [place]-3/Dha/Epa/Fish Oil (Fish Oil 1,000 Mg Ec Softgel), 1 CAP PO DAILY, (Reported) Pantoprazole Sodium (PROTONIX tablet), 1 TAB PO DAILY Simethicone (Gas-X), 1 TAB PO Q8H Scheduled PRN Ibuprofen (Ibuprofen), 1 TAB PO Q6H PRN for pain Past Medical History Past Medical History: Coronary Artery Disease, High Cholesterol, Myocardial Infarction, GERD, Hernia, *CANCER* Past Surgical History: abdominal surgery, other Other Past Surgical History: hernia repair x2 Patient History: Drug addiction CHILD, Name: Stef Cade , Age: 25, Not a twin Alcohol Use: Occasionally Drug Use: none Lives with: Spouse Lives In: Home Review of Systems All Other Systems at this time: Reviewed and Negative ROS As stated above in the HPI, otherwise all systems are reviewed and negative. Physical Exam Vital Signs: Temperature: 97.0, Source: Oral, Heart Rate: 56, Respiratory Rate: 18, BP: 148/73, Pulse Oximetry: 98, Weight: 97.100 Oxygen Flow Rate: 0 Physical Exam General: Alert, no apparent distress. HEENT: PERRL, EOMI, no injection, moist mucous membranes. Neck: Full range of motion. Respiratory: Lungs clear, no respiratory distress. Chest: No accessory muscle use. Cardiovascular: Regular rate and rhythm, no murmurs. Gastrointestinal: Soft, tender left and right upper quadrant Extremities: Normal range of motion, no deformity. Neurologic: Oriented x4. Psychiatric: Normal mood and affect. Skin: Normal color, warm and dry. No edema, no ecchymosis. Medical Decision Making Additional information obtaine: old records Findings Patient's CT and labs were unremarkable. His CT showed mild colonic stool burden. There was evidence of diverticulosis versus diverticulitis. Advised the patient to focus on eating vegetables over the coming days and to avoid any cigarette smoking Differential Dx:Considerations: Cholangitis, Gastroenteritis, Hernia, Inflammatory BD, Pancreatitis Departure Disposition: HOME / SELF CARE / HOMELESS Impression: Primary Impression: Abdominal pain Discharge Instructions: Abdominal Pain, Adult, [id number] Referrals: NO PRIMARY CARE PROVIDER (PCP) Education Educated: Patient Educated regarding: diagnosis Signature Scribe Signature: v Attestation: Scribed for Aaron Jones Education Trainer by Aaron Caicedo NP . 05/22/25 21:06 AARON JONES NP May 20, 2025 14:41
[2025-05-20 15:18] LABS: MEAN PLATELET VOLUME 8.6 FL (7.4-10.4); RED CELL DISTRIBUTION WIDTH 13.8 % (11.5-14.5)
[2025-05-20 15:33] LABS: CREATININE 0.84 MG/DL (0.60-1.10); TOTAL CARBON DIOXIDE 28.5 MMOL/L (24-32); eCRCL 82 ML/MIN; eGFR 89 ML/MIN
[2025-05-20] MEDS ORDERED: iohexol 300mg/ml 100ml inj. ONE (15:46)
--- NOTE | 2025-05-20 16:19 | RADIOLOGY REPORT ---
COMPUTERIZED TOMOGRAPHY ABDOMEN AND PELVIS WITH CONTRAST REASON FOR EXAM: constipation COMPARISON: CT CT ABDOMEN PELVIS W/ IV CONTRAST on DOS: 03/26/25 TECHNIQUE: The exam was performed on a Multidetector scanner. Spiral scans were acquired from the diaphragm to the symphysis pubis after administration of IV contrast. 2-D coronal and sagittal reformatted images were provided. Radiation optimization: All CT scans at this facility use at least one of these dose optimization techniques: Automated exposure control mA and/or kV adjustment per patient size (includes targeted exams where dose is matched to clinical indication) or iterative reconstruction. CONTRAST ADMINISTRATION: 100 mL omnipaque 300 intravenously RADIATION DOSE: CTDI: 29 mGy DLP: 1473 mGy-cm FINDINGS: There is minimal dependent atelectasis in bilateral lower lobes of the lungs. There is no pleural effusion. There is no pericardial effusion. There is a small hiatal hernia. The spleen is not enlarged. The liver is within normal limits for size. The portal vein is patent. No calcified gallstone is identified. The pancreas is within normal limits. The adrenal glands appear normal. The kidneys enhance symmetrically. No solid renal mass is identified. There is no hydronephrosis of either kidney. There is no abdominal aortic aneurysm. There is no pathologic lymphadenopathy by size criteria. There are tiny metallic densities in the area of the prostate consistent with brachytherapy. The prostate has been largely removed. The urinary bladder is unremarkable. No free fluid is identified in the abdomen or pelvis. There is extensive sigmoid diverticulosis without evidence of diverticulitis. The colonic stool burden is overall small. The appendix is normal. There is no Pathologic distention of the small bowel. There is unchanged appearance of a approximately 2.9 cm fluid density in the right inguinal region, likely related to a hernia surgery. There is abdominal wall mesh. No acute osseous abnormality is identified. There is moderate narrowing of the sacroiliac joints. There are degenerative changes in the lumbar spine. IMPRESSION: The colonic stool burden is overall small. No imaging findings to support constipation. Normal appendix. Prior prostatectomy and hernia repairs. Extensive sigmoid diverticulosis without evidence of diverticulitis.
[2025-05-20 16:32] LABS: LEUKOCYTE ESTERASE ,URINE NEGATIVE (Neg); NITRITES, URINE NEGATIVE (Neg); OCCULT BLOOD,URINE NEGATIVE (Neg)
[2025-05-20 16:37] LABS: UA COLLECTION TYPE CLN CATCH MIDSTREAM
[2025-05-20 16:50] VITALS: BP 133/59; PULSE 58; RESP 18; TEMP 97.8; O2SAT 99
== END 2025-05-20 16:52 | disposition home or self-care (01) ==
LOC: ER 14:24
DX: R10.11 Right upper quadrant pain (principal); I25.10 Atherosclerotic heart disease of native coronary artery without angina pectoris; E78.00 Pure hypercholesterolemia, unspecified; I25.2 Old myocardial infarction; F19.20 Other psychoactive substance dependence, uncomplicated; K21.9 Gastro-esophageal reflux disease without esophagitis; Z72.89 Other problems related to lifestyle; Z79.899 Other long term (current) drug therapy; Z98.890 Other specified postprocedural states
CPT/HCPCS: 36415; 74177; 80053; 81003; 83690; 85025; 99285; Q9967

== ENCOUNTER 2025-05-22 10:42 | Emergency (ER) | payer MEDICARE, OTHER ==
[~2025-05-22] VITALS: Ht 180.3 cm; Wt 95.8 kg
[2025-05-22 11:20] LABS: LEUKOCYTE ESTERASE ,URINE NEGATIVE (Neg); NITRITES, URINE NEGATIVE (Neg); OCCULT BLOOD,URINE NEGATIVE (Neg)
[2025-05-22 11:24] LABS: UA COLLECTION TYPE CLN CATCH MIDSTREAM
[2025-05-22 11:27] LABS: MEAN PLATELET VOLUME 8.8 FL (7.4-10.4); RED CELL DISTRIBUTION WIDTH 13.7 % (11.5-14.5)
[2025-05-22 11:46] LABS: CREATININE 0.92 MG/DL (0.60-1.10); TOTAL CARBON DIOXIDE 28.5 MMOL/L (24-32); eCRCL 75 ML/MIN; eGFR 80 ML/MIN
--- NOTE | 2025-05-22 12:20 | ELECTROCARDIOGRAPH REPORT ---
[facility] Test Date: 2025-05-22 Test Time: 12:17:15 Pat Name: ALEXANDREA CHAMBERS Department: [facility] Patient ID: [id number] Room: Gender: M [employer]: : 1950 Requested By: JOE KAHN Order Number: [id number] Reading MD: Dr. DANAE Victor Measurements Intervals [place] Rate: 54 P: 40 HI: 150 QRS: 72 QRSD: 108 T: 56 QT: 414 QTc: 393 Interpretive Statements Sinus bradycardia Electronically Signed On 05-23-2025 15:18:[address] DANAE Victor Please click the below link to view image of tracing.
--- NOTE | 2025-05-22 12:22 | Physician Documentation ---
History of Present Illness ~ General Chief Complaint: Abdominal Pain Stated Complaint: ABD PAIN Time Seen by MD: 11:51 Primary Medical Doctor: Dr. Paulson Source: patient (4), old records (See HPI) Mode of Arrival: POV History of Present Illness Initial Comments The patient comes in for evaluation and management of epigastric discomfort. He reports that he has had epigastric pain with slight radiation into the right and left upper quadrants going on for the last week. He tells me he has never had it before this week, but later mentions that he has previously been on medications for GERD, and last summer was complaining to Dr. Paulson about bloating and gas pain. Patient tells me that the pain is rather constant over the last week, seems to get slightly worse with p.o. intake. He also tells me that when he last had an EGD, several years ago, that Dr. Riddle mentioned that he might be developing a hiatal hernia. He denies any nausea or vomiting but has quite a lot of belching and bloating. He denies any chest pain, stool color has been normal and patient's last bowel movement was today. Patient was taking Pepcid with symptoms, but has not taken any for the last several days. Medication Reconciliation Allergies: Coded Allergies: No Known Allergies (Unverified , 05/22/25) Scheduled Atorvastatin Calcium (Atorvastatin Calcium), 1 TAB PO DAILY, (Reported) Cholecalciferol (Vitamin D3) (Vitamin D3), 1 CAP PO DAILY, (Reported) Gluc Rivera/Msm/Magnesium/Vit C (Glucosamine Complex-Msm Cap), 1 EACH PO BID, (Reported) Lamotrigine (Lamotrigine), 3 TAB PO BID, (Reported) Garrett-3/Dha/Epa/Fish Oil (Fish Oil 1,000 Mg Ec Softgel), 1 CAP PO DAILY, (Reported) Pantoprazole Sodium (PROTONIX tablet), 1 TAB PO DAILY Simethicone (Gas-X), 1 TAB PO Q8H Scheduled PRN Ibuprofen (Ibuprofen), 1 TAB PO Q6H PRN for pain Past Medical History Past Medical History: Coronary Artery Disease, High Cholesterol, Myocardial Infarction, GERD, Hernia, *CANCER* Past Surgical History: abdominal surgery, other Other Past Surgical History: hernia repair x2 Patient History: Drug addiction CHILD, Name: Stef Cade , Age: 25, Not a twin Smoking Status: Current some day smoker Alcohol Use: Occasionally Drug Use: none Lives with: Spouse Lives In: Home Review of Systems All Other Systems at this time: Reviewed and Negative Physical Exam Physical Exam Vital Signs: Temperature: 97.5, Source: Temporal, Heart Rate: 60, Respiratory Rate: 16, BP: 145/78, Pulse Oximetry: 98, Weight: 95.800 Oxygen Flow Rate: 0 Physical Exam General: Pt is awake, alert, oriented x4 in no acute distress and well appearing. Head: Normocephalic and atraumatic. Eyes: Conjunctiva normal. ENT: Mucous membranes moist. Neck: Supple. Chest: Clear to auscultation bilaterally, without rales, rhonchi, or wheezes. There is no accessory muscle use or retractions. Cardiac: Regular rate and rhythm without murmurs, gallops or rubs. Palpation of the chest wall is normal. Abd: Soft, nondistended, tender in the epigastrium, with normoactive bowel sounds. Minimal tenderness in the right upper and left upper quadrants. No guarding or rebound. Extremities: Within normal limits without cyanosis, clubbing, or edema. Skin: [place], warm and dry with no significant rash appreciated. Neuro: Cranial nerves II-XII grossly intact. The gait is normal. Progress Results/Orders Results/Orders Orders - JOE KAHN MD Electrocardiogram (05/22/25 12:11) Completed Orders - JOE KAHN MD Urinalysis, Cult If Indicated (05/22/25 10:55) Cbc/Diff (05/22/25 10:55) Lipase (05/22/25 10:55) CMP (05/22/25 10:55) Pantoprazole 40mg Iv (Protonix 40mg Iv) (05/22/25 12:15) Simethicone Capsule (Gas Relief Capsule) (05/22/25 12:15) Electrocardiogram (05/22/25 12:11) Pantoprazole 40mg Iv (Protonix 40mg Iv) (05/22/25 12:15) Pantoprazole Tablet (Protonix) (05/23/25 07:30) Simethicone Capsule (Gas Relief Capsule) (05/22/25 12:15) Simethicone Capsule (Gas Relief Capsule) (05/22/25 12:20) Hs Troponin I W Calculations (05/22/25 12:22) Pantoprazole Tablet (Protonix) (05/22/25 12:25) Vital Signs 05/22/25 05/22/25 05/22/25 05/22/25 10:51 11:42 12:52 13:02 Temp 97.5 98.5 Pulse 60 54 54 Resp 18 16 16 16 B/P (MAP) 145/78 145/84 (104) 142/78 Pulse Ox 98 99 95 O2 Flow Rate 0 0 Laboratory Tests Test 05/22/25 11:00 05/22/25 11:15 Urine Specimen Description Cln catch midstream Urine Color Straw Urine Clarity Clear Urine pH 7.0 Urine Specific [place] <=1.005 Urine Protein Negative Urine Glucose (UA) Negative Urine Ketones Negative Urine Occult Blood Negative Urine Nitrite Negative Urine Bilirubin Negative Urine Urobilinogen 0.2 Urine Leukocyte Esterase Negative Urine Culture Indicated Not ind Volume Urine Centrifuged 10 ml Urine Comment White Blood Count 4.6 Red Blood Count 5.18 Hemoglobin 15.9 Hematocrit 47.2 Mean Corpuscular Volume 91.2 Mean Corpuscular Hemoglobin 30.7 Mean Corpuscular Hemoglobin Concent 33.7 Red Cell Distribution Width 13.7 Platelet Count 188 Mean Platelet Volume 8.8 Neutrophils (%) (Auto) 73.4 Lymphocytes (%) (Auto) 16.2 L Monocytes (%) (Auto) 8.8 Eosinophils (%) (Auto) 0.9 Basophils (%) (Auto) 0.7 Neutrophils # (Auto) 3.4 Lymphocytes # (Auto) 0.7 L Monocytes # (Auto) 0.4 Eosinophils # (Auto) 0.0 Basophils # (Auto) 0.0 CBC Comment Sodium Level 140 Potassium Level 4.5 Chloride Level 105 Carbon Dioxide Level 28.5 Anion Gap 7 L Blood Urea Nitrogen 13 Creatinine 0.92 Estimated GFR/1.73 m2 80 BUN/Creatinine Ratio 14.1 Glucose Level 114 H Calcium Level 9.1 Total Bilirubin 0.6 Aspartate Amino Transf (AST/SGOT) 15 Alanine Aminotransferase (ALT/SGPT) 19 Alkaline Phosphatase 68 Troponin I High Sensitivity 5 Total Protein 7.6 Albumin 4.3 Globulin 3.3 Albumin/Globulin Ratio 1.3 Lipase 25 Chemistry Comments EKG/XRAY/CT/US/VASC/MRI EKG : EKG Rate: 54 EKG: sinus sneha EKG Blocks: none [place]: normal Medical Decision Making Additional information obtaine: N/A Findings Differential Diagnosis Patient presenting with one week of epigastric and bilateral upper quadrant discomfort. History of GERD and questionable history of hiatal hernia. He has not had any chest pain. Laboratory workup and CT scan of the abdomen were performed two days ago, and labs were repeated per triage protocol on his arrival. There is no evidence for hepatobiliary disease or acute pancreatitis. The CT scan showed no constipation, obstruction or perforation. Patient noted to have diverticulosis without diverticulitis. Given his epigastric tenderness and pain along with bloating and gas, his symptoms are most likely from a gastroesophageal etiology. He has intermittently been taking some Pepcid, I am going to have him start on a proton pump inhibitor as well as simethicone for control of symptoms. He is advised to follow up with his PCP who can do further H pylori testing and can refer him for repeat EGD. EKG shows no signs of ischemia, and patient without any chest pain. Troponin within normal limits. Patient discharged, understands to return to the emergency department for any new symptoms or concerns. Departure Time of Disposition: 12:22 Disposition: HOME / SELF CARE / HOMELESS Impression: Primary Impression: Abdominal pain Qualified Codes: R10.13 - Epigastric pain Condition: Stable Discharge Instructions: Gastritis, Adult Additional Instructions: Your symptoms are most consistent with an esophageal or stomach source. Stopped taking the Pepcid and start taking the new medications as prescribed, and take them on a daily basis whether you have symptoms or not. It is important that you stopped smoking in general, but smoking we will also irritate your stomach lining and so you should stop for symptom control. Avoid any symptom provoking foods or alcohol. Follow-up with Dr. Paulson for recheck, and to set up an outpatient endoscopy. Return immediately to the emergency department if you have worsening symptoms, any chest pain, or any other concerns. Referrals: NO PRIMARY CARE PROVIDER (PCP) Prescriptions Simethicone (Gas-X) 125 Mg Tab.chew 1 TAB PO Q8H for gas for 10 Days, #30 TAB 0 Refills Prov: JOE KAHN MD 05/22/25 Pantoprazole Sodium (PROTONIX tablet) 40 Mg Tablet.dr 1 TAB PO DAILY for 30 Days, #30 TAB 0 Refills Prov: JOE KAHN MD 05/22/25 Education Educated: Patient Educated regarding: diagnosis, treatment Signature Scribe Signature: Attestation: JOE KAHN MD May 22, 2025 12:22
[2025-05-22] MEDS ORDERED: SIME125T7 PO (12:25)
[2025-05-22] MEDS ORDERED: pantoprazole 40mg Tablet.DR PO SCH (12:25)
[2025-05-22] MEDS ORDERED: PANT-47 PO (12:25)
[2025-05-22] MEDS: pantoprazole 40mg Tablet.DR PO ONE (12:31)
[2025-05-22 13:02] VITALS: BP 142/78; PULSE 54; RESP 16; TEMP 98.5; O2SAT 95
[2025-05-23] MEDS ORDERED: pantoprazole 40mg Tablet.DR PO SCH (07:30)
== END 2025-05-22 13:05 | disposition home or self-care (01) ==
LOC: ER 10:43
DX: R10.13 Epigastric pain (principal); K21.9 Gastro-esophageal reflux disease without esophagitis; E78.00 Pure hypercholesterolemia, unspecified; F17.200 Nicotine dependence, unspecified, uncomplicated; F19.20 Other psychoactive substance dependence, uncomplicated; I25.10 Atherosclerotic heart disease of native coronary artery without angina pectoris; I25.2 Old myocardial infarction; Z98.890 Other specified postprocedural states; Z79.899 Other long term (current) drug therapy; Z72.89 Other problems related to lifestyle
CPT/HCPCS: 36415; 80053; 81003; 83690; 84484; 85025; 93005; 99284